=== PATIENT | male | born 1950 | race Caucasian/White ===

== ENCOUNTER → 2018-02-19 10:36 | Outpatient (CLI) | payer MEDICARE, OTHER, SELFPAY ==
--- NOTE | 2018-02-19 | DI.RAD.S_ITS ---
PROCEDURE: XR CHEST 2V INDICATIONS: Acute bronchitis TECHNIQUE: 2 views of the chest were acquired. COMPARISON: None. FINDINGS: Surgical changes and devices: None. Lungs and pleura: No pleural effusions or pneumothorax. Lungs are clear. Mediastinum: Mediastinal contours are normal. Heart size is normal. Bones and chest wall: No suspicious bony abnormalities. Soft tissues appear unremarkable. IMPRESSION: No pneumonia found. Dictated by: Erick Rai M.D. on 02/19/2018 at 11:06 Approved by: Erick Rai M.D. on 02/19/2018 at 11:07
== END ==
PROVIDERS: Family Provider Family Medicine; PCP Family Medicine; Visit Provider Family Medicine
DX: J20.9 Acute bronchitis, unspecified (principal)
CPT/HCPCS: 71046

== ENCOUNTER 2018-06-14 08:43 | Day surgery (SDC) | payer MEDICARE, OTHER, SELFPAY ==
--- NOTE | 2018-06-14 | PATH_ITS ---
[facility] Accession Number: [id number] . 01 Material submitted: . PART A: DUODENUM BIOPSY PART B: ANTRUM BIOPSY PART C: GE JUNCTION BIOPSY PART D: BIOPSY OF FUNDUS . 02 Diagnosis: A. Duodenum, Biopsy: Small bowel mucosa with no diagnostic abnormality. Negative for active inflammation, features of sprue, dysplasia or malignancy. . B. Antrum, Biopsy: Gastric antral mucosa with reactive gastropathy and intestinal metaplasia. Intestinal metaplasia present in 1 of 1 fragments. Negative for Helicobacter organisms by immunohistochemistry. Negative for dysplasia or malignancy. . C. Gastroesophageal Junction, Biopsy: Kassandra esophagitis. Fungal hyphae morphologically consistent with Kassandra species seen on H/E stain. Negative for specialized intestinal metaplasia, dysplasia or malignancy. . D. Fundus, Biopsy: Acute erosive gastritis. Negative for Helicobacter organisms by immunohistochemistry. Negative for intestinal metaplasia, dysplasia or malignancy. BFI06/18/2018 . 02 Electronically signed: . Jack Day MD, PhD, Pathologist NPI- [id number] . 01 Gross description: . Received four formalin-filled containers each labeled with the patient's name. . A. In a container labeled duodenum are two less than 0.1 to 0.1 cm portions of tissue. Entirely submitted in cassette A. B. In a container labeled antrum, the specimen consists of a 0.2 cm portion of tissue. Entirely submitted in cassette B. C. In a container labeled GE junction are four less than 0.1 to 0.1 cm portions of tissue. Entirely submitted in cassette C. D. In a container labeled fundus, the specimen consists of a 0.2 cm portion of tissue. Entirely submitted in cassette D. ([facility]:[id number]) /[facility] . 02 Microscopic: . A. An immunohistochemical stain was performed to evaluate for Helicobacter organisms and is negative. The control stain showed appropriate reactivity. . D. An immunohistochemical stain was performed to evaluate for Helicobacter organisms and is negative. The control stain showed appropriate reactivity. . * This test was developed and its performance characteristics determined by [facility]. It has not been cleared or approved by the U.S. Food and Drug Administration. The FDA has determined that such clearance or approval is not necessary. This test is used for clinical purposes. It should not be regarded as investigational or for research. . 02 Pathologist provided ICD-10: B37.81, K29.70, K31.9 . 02 CPT . 296785, 785499, 235005, 245089, J83182 Performed at: [facility] [address] [id number] MD Joaquín Dominguez MD Phone: [phone] Performed at: 02 [facility] [address] [place], [place] [id number] MD Oneal Rosado MD Phone: [phone]
[2018-06-14 09:15] VITALS: BMI 21.1
[2018-06-14 09:26] VITALS: BP 114/74; PULSE 76; RESP 15; TEMP 36.7; O2SAT 96
[2018-06-14] MEDS: SODIUM CHLORIDE 0.9% 1,000 ML 200 ML IV (09:28)
--- NOTE | 2018-06-14 10:14 | PM.PREOP ---
Pre-operative Note Interval Note Pre-op Check: Yes History & Physical Reviewed by Physician Changes: No
[2018-06-14] MEDS: MIDAZOLAM 5 MG/5 ML VIAL IV (10:31)
[2018-06-14] MEDS: fentaNYL 250 MCG/5 ML INJ IV (10:31)
--- NOTE | 2018-06-14 10:38 | PM.OP.1 ---
Operative Date/Time/Diagnoses Date of procedure: 06/14/18 Time of procedure: 10:38 Pre-op diagnosis: History of esophageal cancer GERD Post-op diagnosis: same Procedure & Clinicians Procedure: Esophagogastroduodenoscopy with biopsies Same procedure as scheduled: Yes Indications: Last endoscopy approximately 2 years ago Surgeon: Yana Canada Click Yes if Unassisted: Yes Anesthesia Type: Sedation (Versed 4 mg; fentanyl 75 mcg) Operative Notes Findings: 1. Normal-appearing duodenum and duodenal mucosa 2. Hemorrhagic gastritis affecting the fundus and the antrum but most severely affecting the fundus. 3. GE junction at 20 cm from the incisors. The appearance is consistent with a Schatzki ring though it is an anastomosis not a true Schatzki ring. Mild distal esophagitis. No hemorrhage here. 4. Normal-appearing posterior oropharynx and vocal cords 5. No evidence of recurrent malignancy Biopsies: All were cold forceps biopsies 1. Duodenum 2. Antrum 3. GE junction 4. Fundus Specimen(s): other (See list above) Estimated Blood Loss (mL): 3 Procedure in detail: After obtaining informed consent, the patient was brought to the GI suite and placed in the left lateral decubitus position on the examination table. After placement of appropriate monitors, the patient was given incremental doses of Versed and Fentanyl until an appropriate level of sedation was achieved. A time out was held per SCOAP protocol. A bite block was gently placed between the patient's teeth. The endoscope was lubricated and then passed into the patient's posterior oropharynx. The esophagus was cannulated under direct vision and the scope was passed to the second portion of the duodenum without difficulty. The scope was then withdrawn with careful examination of all areas of the upper GI tract and mucosa. Findings are noted above. Air was aspirated from the stomach and the endoscope gently removed from the esophagus. The patient was allowed to awaken from sedation without difficulty and taken to the post-anesthesia care unit in good condition. Total sedation time 20 min Complications: none Condition: stable Disposition: PACU Plan for aftercare: 1. Hemorrhagic gastritis 2. No gross evidence of Martin's esophagus affecting the anastomosis at 20 cm 3. Increase omeprazole to 40 mg b.i.d. 4. Plan for repeat EGD in 1 year
[2018-06-14 10:44] VITALS: BP 110/76; PULSE 84; RESP 11; TEMP 37.3; O2SAT 95
[2018-06-14 10:49] VITALS: BP 110/78; PULSE 85; RESP 14; O2SAT 95
[2018-06-14 10:54] VITALS: BP 109/77; PULSE 83; RESP 14; O2SAT 96
[2018-06-14 10:59] VITALS: BP 114/83; PULSE 82; RESP 18; TEMP 36.8; O2SAT 95
[2018-06-14] MEDS: TETRACAINE/BENZOCAINE/BUTAMBEN (CETACAINE) BOTTLE 1 SPRAY TOP (11:06)
[2018-06-14] MEDS: LIDOCAINE 4% SOLN 50 ML 20 ML TOP (11:08)
[2018-06-14 11:10] VITALS: BP 113/75; PULSE 80; RESP 16; O2SAT 97
== END 2018-06-14 11:15 | disposition home or self-care (01) ==
PROVIDERS: PCP Family Medicine; Visit Provider Surgery
PROC: 0DJ08ZZ Inspection of Upper Intestinal Tract, Via Natural or Artificial Opening Endoscopic (ICD-10-PCS; CPT 43235; principal; 2018-06-14 10:45)
DX: B37.81 Candidal esophagitis (principal); K21.0 Gastro-esophageal reflux disease with esophagitis; K29.71 Gastritis, unspecified, with bleeding; K31.9 Disease of stomach and duodenum, unspecified
CPT/HCPCS: 43239; 88305; 88342; 99152; J2250; J3010

== ENCOUNTER → 2019-06-10 13:58 | Outpatient (CLI) | payer MEDICARE, OTHER, SELFPAY ==
--- NOTE | 2019-06-10 | DI.US.S_ITS ---
PROCEDURE: US ABDOMEN LIMITED INDICATIONS: VIRAL PNEOUMONIA TECHNIQUE: Real-time scanning was performed of the abdominal and retroperitoneal organs, with image documentation. COMPARISON: [facility], CT, CHEST/ABD/PELVIS W/CON (PNL), 01/24/2011, 9:19. [facility], CT, CHEST/ABD/PELVIS W/CON (PNL), 03/06/2012, 10:08. FINDINGS: Liver: Liver is normal in size and homogeneous in echotexture. Nonspecific 4 mm cystic lesion noted in the lateral, superior right hepatic lobe. On retrospective review, a likely correlate is identified on comparison CT in both size and location. Its stability over time is compatible with a benign process. Gallbladder: Numerous, mobile gallstones identified in the gallbladder. No gallbladder wall thickening, pericholecystic fluid, or abnormal sonographic Chandler's. Biliary ducts: Intrahepatic bile ducts are non-dilated. Extrahepatic bile duct caliber measures 3 mm. Normal is 6-7 mm or less in diameter, or 10 mm or less post-cholecystectomy. Of note, the distal common bile duct measures at the upper limits of normal at 7 mm in diameter. No evidence for choledocholithiasis. Pancreas: Not well-visualized secondary to bowel gas. Miscellaneous: No free abdominal fluid. IMPRESSION: Cholelithiasis without evidence for acute cholecystitis. Common bile duct measures 3 mm in diameter with borderline prominence of the distal common bile duct measuring up to 7 mm in diameter. No evidence for choledocholithiasis. Dictated by: David Child M.D. on 06/10/2019 at 18:18 Approved by: David Child M.D. on 06/10/2019 at 18:25
--- NOTE | 2019-06-10 | DI.RAD.S_ITS ---
PROCEDURE: XR CHEST 2V INDICATIONS: VIRAL PNEOUMONIA TECHNIQUE: 2 views of the chest were acquired. COMPARISON: [facility], CR, XR CHEST 2V, 02/19/2018, 10:18. FINDINGS: Surgical changes and devices: None. Lungs and pleura: Lungs are clear. No pleural effusions or pneumothorax. Mediastinum: Mediastinal contours are normal. Heart size is normal. Bones and chest wall: No suspicious bony abnormalities. Soft tissues appear unremarkable. IMPRESSION: No acute cardiopulmonary abnormalities. No focal consolidation. Dictated by: David Child M.D. on 06/10/2019 at 14:35 Approved by: David Child M.D. on 06/10/2019 at 14:36
== END ==
PROVIDERS: PCP Family Medicine; Visit Provider Family Medicine
DX: J12.89 Other viral pneumonia (principal); R06.02 Shortness of breath; K80.20 Calculus of gallbladder without cholecystitis without obstruction
CPT/HCPCS: 71046; 76705

== ENCOUNTER → 2019-07-25 12:55 | Outpatient (CLI) | payer MEDICARE, OTHER, SELFPAY ==
--- NOTE | 2019-07-25 | DI.CT.S_ITS ---
PROCEDURE: CT CHEST WO CON INDICATIONS: history of malignant neoplasm of esophagus TECHNIQUE: Noncontrast 5 mm thick sections acquired from the pulmonary apices to the posterior costophrenic angles. 1 mm lung window, 5 mm thick coronal and sagittal and 7 mm axial MIP reformats were then acquired. For radiation dose reduction, the following was used: automated exposure control, adjustment of mA and/or kV according to patient size. COMPARISON: None. FINDINGS: Image quality: Excellent. Lungs and pleura: An ill-defined 5 mm pulmonary nodule is present within the lateral aspect of the right upper lobe (series 3, image 156). A 3 mm diameter pulmonary nodule is present at the anterior right lung base (series 3, image 296). There is mild centrilobular emphysema with an apical predominance. A 4 mm intrafissural nodule is present within the right oblique fissure (series 3, image 213). No acute air space opacities. No pleural effusion or pneumothorax. Mediastinum: Heart size is normal. No pericardial effusion. No mediastinal adenopathy by size criteria. Thoracic aorta and central pulmonary arteries are normal in size. Scattered atheromatous calcifications are present within the aortic arch. Esophagus is normal in caliber. Patient is status post esophageal resection with new esophagus. Bones and chest wall: No suspicious bony lesions. No vertebral body compression fractures. No axillary or supraclavicular adenopathy by size criteria. Thyroid gland is unremarkable. Abdomen: Visualized upper abdominal solid organs and bowel loops appear normal in the absence of contrast. IMPRESSION: 1. 4-5 mm pulmonary nodules as above. Please see followup guidelines below. 2. No acute air space opacities to suggest aspiration or infection. Fleischner Society criteria for SOLID lung nodule followup. Nodule size (mm)Low-risk patientHigh-risk patient?4No follow-up neededFollow-up at 12 mo; if no change, no further follow-up>1-2Vgcyzm-ko CT at 12 mo; if no change, no further follow-up needed.Initial follow-up CT at 6-12 mo, then 18-24 mo if no change. >6-8Initial follow-up CT at 6-12 mo, then 18-24 mo if no change. Initial follow-up CT at 3-6 mo, then 9-12 mo and 24 mo if no change. >8Follow-up CT at 3, 9, 24 mo. Or PET and/or biopsy.Same as for low-risk pts. Fleischner Society criteria for SUB-SOLID lung nodule followup. Solitary pure ground-glass nodules5 mm or lessNo followup needed. >5 mm3 mo follow-up CT to confirm persistence. Then annual CT for 3 years. Part-solid nodules3 mo follow-up CT to confirm persistence. If persistent with solid component <5 mm, annual CT for at least 3 years. If solid component is 5 mm or more, biopsy or surgical resection. Consider PET-CT for lesions > 10 mm. Multiple sub-solid nodulesPure ground glass nodules [address] at 2 and 4 years. Pure ground glass nodules >5 mm without dominant lesion. [address] to confirm persistence, then annual followup CT for at least 3 years. Dominant nodule(s) with part-solid or solid component. [address] to confirm persistence. If persistent, consider biopsy or surgical resection, manfred if lesions have >5 mm solid component. Dictated by: Alison Kimble M.D. on 07/25/2019 at 15:00 Approved by: Alison Kimble M.D. on 07/25/2019 at 15:05
== END ==
PROVIDERS: PCP Family Medicine; Visit Provider Family Medicine
DX: R63.4 Abnormal weight loss (principal); R91.8 Other nonspecific abnormal finding of lung field; Z85.01 Personal history of malignant neoplasm of esophagus
CPT/HCPCS: 71250

== ENCOUNTER → 2019-08-07 13:50 | Outpatient (CLI) | payer SELFPAY ==
--- NOTE | 2019-08-07 | DI.NM.S_ITS ---
PROCEDURE: CO PET CT FUSION LIMITED AREA RADIOPHARMACEUTICAL: 12.8 mCi F-18 fluorodeoxyglucose IV. INDICATIONS: Diagnosing Lung Nodules. History of esophageal cancer. TECHNIQUE: After intravenous administration of F-18 fluoro-deoxyglucose (FDG), noncontrast CT images were obtained for attenuation correction and anatomic localization. A series of overlapping emission PET images was then obtained. The patient's pretest fasting blood glucose level as measured by glucometer was 83 mg/dl. The area imaged spanned from the skull base to the upper thighs. COMPARISON: [facility], , US ABDOMEN LIMITED, 06/10/2019, 14:48. [place], [place], PET/CT NECK TO MID THIGH, 09/18/2007, 15:09. [place], PET/CT NECK TO MID THIGH, 01/10/2008, 8:54. [facility], CT, CHEST/ABD/PELVIS W/CON (PNL), 03/06/2012, 10:08. [facility], CR, XR CHEST 2V, 06/10/2019, 14:03. [facility], CT, CT CHEST WO CON, 07/25/2019, 13:02. FINDINGS: Head and neck: No soft tissue masses in the neck. No enlarged cervical or supraclavicular lymph nodes; no abnormal jacek tracer uptake. Salivary and thyroid glands appear normal. Sinuses and mastoids are clear. Thorax: There are postsurgical changes of esophagectomy and gastric pull through. There is increased uptake in stomach. No enlarged mediastinal, hilar, or axillary lymph nodes. No abnormal jacek tracer uptake. No acute pulmonary opacities. No pleural effusions or pneumothorax. Heart size is normal. No pericardial effusion. Abdomen and pelvis: No enlarged retroperitoneal or mesenteric lymph nodes. No abnormal jacek tracer uptake. There is normal heterogeneous hepatic tracer uptake. Liver is normal in size, without focal masses. The spleen is normal in size. Gallbladder is normal. Pancreas is normal in morphology. No adrenal nodules. Kidneys are normal in size, without hydronephrosis or nephrolithiasis. Small and large intestines are normal in caliber. Aorta and inferior vena cava are normal in size. Severe atherosclerosis. No free fluid or air. No pelvic or inguinal adenopathy. Bladder wall thickness is normal. Bones: No abnormal osseous tracer uptake. No lytic or blastic bony lesions. IMPRESSION: 1. Esophagectomy and gastric pull-through. There is mildly increased activity in stomach, indeterminate in clinical significance. 2. Small lung nodules demonstrate no increased FDG activity. The nodules are, however, to small and could be below the resolution of FDG PET. Recommend CT followup. 3. No scintigraphic findings to suggest jacek or distant metastasis. Dictated by: Justin Wills M.D. on 08/07/2019 at 16:25 Approved by: Justin Wills M.D. on 08/07/2019 at 18:27
== END ==
PROVIDERS: PCP Family Medicine; Visit Provider Family Medicine
DX: R91.8 Other nonspecific abnormal finding of lung field (principal); Z85.01 Personal history of malignant neoplasm of esophagus

== ENCOUNTER 2019-09-02 06:21 | Day surgery (SDC) | payer MEDICARE, OTHER, SELFPAY ==
--- NOTE | 2019-09-02 | PATH_ITS ---
[facility] Accession Number: [id number] . 01 Material submitted: . esophagus, E-G Junction - GE JUNCTION . 02 Diagnosis: Gastroesophageal Junction, Biopsy: Squamocolumnar junctional mucosa with chronic mild active inflammation, consistent with reflux esophagitis. Negative for intestinal metaplasia or fungal organisms on AB/PAS stain. Negative for dysplasia or malignancy. [facility]V 09/04/2019 1232 Local . 02 Electronically signed: . Jack Day MD, PhD, Pathologist NPI- [id number] . 01 Gross description: . GE JUNCTION: Received in formalin are 4 fragment(s) of grayson, soft tissue measuring 0.1 x 0.1 x 0.1 cm to 0.3 x 0.2 x 0.2 cm submitted entirely in 1 cassette(s) /[facility] 09/02/2019 1857 Local . 02 Microscopic: . An AB/PAS stain is negative for goblet cells and fungal organisms. A control stain shows appropriate reactivity. . 02 Pathologist provided ICD-10: K21.0 . 02 CPT . 782898, [id number] Performed at: 01 [facility] [address] [facility], [place], [place] [id number] MD Joaquín Dominguez MD Phone: [phone] Performed at: 02 [facility] [address] [place], [place] [id number] MD Libra Burgess MD Phone: [phone]
[2019-09-02 07:19] VITALS: BP 123/76; PULSE 73; RESP 15; TEMP 36.8; O2SAT 95
[2019-09-02] MEDS: SODIUM CHLORIDE 0.9% 1,000 ML 200 ML IV (07:41)
--- NOTE | 2019-09-02 07:48 | PM.HP.1 ---
History of Present Illness History of Present Illness Date Patient Seen: 09/02/19 Time Patient Seen: 07:48 Chief complaint: [id number] Narrative: This is a 69-year-old male history of a transhiatal esophagectomy 12 years ago for esophageal cancer with gastric pull up presents for diagnostic EGD. He has some mild dysphagia with solid food getting stuck the upper aspect of his conduit for the past couple of months. His last EGD was 2 years ago and was negative for malignancy. No unintentional weight loss no new pain nausea hematemesis. Patient History Medical History Esophageal cancer (Acute) Surgical History H/O esophagectomy (Acute) Family & Social History Family History Mother Liver cancer Cancer Social History: household members spouse Tobacco & Substance use: Smoking Status Never smoker alcohol intake current Meds Home Medications and Allergies Home Medications Medication Instructions Recorded Confirmed Type finasteride 5 mg tablet 5 mg PO DAILY 06/04/18 09/02/19 History rosuvastatin 5 mg tablet 5 mg PO DAILY 06/04/18 09/02/19 History tamsulosin 0.4 mg capsule 0.8 mg PO DAILY cap 06/04/18 09/02/19 History omeprazole 40 mg PO DAILY 06/14/18 09/02/19 History oxybutynin chloride 5 mg PO DAILY 06/14/18 09/02/19 History sucralfate 1 gram PO QACHS PRN 09/02/19 09/02/19 History Allergies Allergy/AdvReac Type Severity Reaction Status Date / Time No Known Drug Allergies Allergy Verified 09/02/19 07:04 Review of Systems Review of Systems Narrative: A 10 point review of systems is negative except as noted in the HPI Exam Vital Signs (past 8 hours): - 09/02/19 07:19 Temperature 98.2 F Pulse Rate 73 Respiratory Rate 15 Blood Pressure 123/76 Pulse Oximetry 95 Oxygen Delivery Method Room Air Narrative Exam Narrative: General-no acute distress, thin male HEENT-moist mucous membranes, no scleral icterus Neck-supple, no lymphadenopathy Chest- non labored respirations, clear to auscultation bilaterally Cardiac-regular rate no peripheral edema Abdomen-soft, nontender, non distended Extremities-warm, well perfused Neurological-alert and oriented, no focal deficits Assessment & Plan Assessment and plan (1) Dysphagia: Current visit: Yes Status: Acute Assessment & Plan narrative: 69-year-old male history of transhiatal esophagectomy with gastric pull up 12 years ago for esophageal cancer presents with new dysphagia. Esophagoduodenoscopy is indicated. Possible biopsy, possible dilation. We discussed the risks of procedure including bleeding perforation missed diagnosis need for further procedures. His questions have been answered and he is in agreement with this plan.
[2019-09-02] MEDS: LIDOCAINE 4% SOLN 50 ML 20 ML TOP (07:54)
--- NOTE | 2019-09-02 08:10 | PM.OP.ENDO ---
Operative Date/Time/Diagnoses Date of procedure: 09/02/19 Time of procedure: 08:10 Pre-op diagnosis: History of esophageal cancer, dysphagia Post-op diagnosis: same Procedure & Clinicians Study performed: Esophagoduodenoscopy Same procedure as scheduled: Yes Indications: 69-year-old male esophagectomy 12 years ago with mild dysphagia now Surgeon: Gabino Solano Procedure Notes SCOAP/Timeout: Performed Procedure in detail: Patient placed in left lateral decubitus position. Time out was performed. Procedural sedation was administered with Versed and Fentanyl. A bite block was placed. the scope was inserted into the mouth and advanced through the esophagus and into the stomach. The pylorus was intubated and the duodenum was normal. The scope was then withdrawn into the gastric conduit and the conduit was normal in its appearance. The gastro cervical anastomosis was observed and was without ulcerations. For biopsies of the GE junction the attic gastric conduit we were taken with forceps at 15 cm from the incisors. There was a mild stricture of the gastro cervical anastomosis the scope passed easily but there was a slight narrowing here. This was dilated using the 20 mm balloon dilator. The balloon was placed across the stricture and then was carefully insufflated under direct visualization until 20 mm were reached. This was held at the stricture and then the pressure released. Stricture was observed for hemostasis. Then the gastric conduit was desufflated and the scope was withdrawn. Patient tolerated procedure well. Findings: other findings (Gastric stricture) Specimen(s): other (GE junction) Complications: none Impression: Anastomotic stricture Post-procedure Recommendations: EGD in 3 years Disposition: same day surgery
[2019-09-02] MEDS: fentaNYL 250 MCG/5 ML INJ IV (08:13)
[2019-09-02] MEDS: MIDAZOLAM 5 MG/5 ML VIAL IV (08:13)
[2019-09-02 08:15] VITALS: BP 124/78; PULSE 69; RESP 12; TEMP 36.5; O2SAT 94
[2019-09-02 08:20] VITALS: BP 107/70; PULSE 69; RESP 12; O2SAT 97
[2019-09-02 08:25] VITALS: BP 103/70; PULSE 68; RESP 12; O2SAT 96
[2019-09-02 08:34] VITALS: BP 115/81; PULSE 73; RESP 20; O2SAT 94
--- NOTE | 2019-09-02 08:52 | SUR.PHASEII ---
Patient discharged in stable condition with in no distress. All belongings returned to patient. Home via wheelchair and private vehicle.
== END 2019-09-02 08:53 | disposition home or self-care (01) ==
PROVIDERS: PCP Family Medicine; Visit Provider Surgery
PROC: 0DJ08ZZ Inspection of Upper Intestinal Tract, Via Natural or Artificial Opening Endoscopic (ICD-10-PCS; CPT 43235; principal; 2019-09-02 07:45)
DX: K22.2 Esophageal obstruction (principal); Z85.01 Personal history of malignant neoplasm of esophagus
CPT/HCPCS: 43249; J2250; J3010

== ENCOUNTER → 2020-08-10 09:43 | Outpatient (CLI) | payer MEDICARE, OTHER, SELFPAY ==
[2020-08-10 10:36] LABS: COVID19 -Nasal RAPID Negative (Negative)
== END ==
PROVIDERS: PCP Family Medicine; Visit Provider Specialist
DX: Z01.812 Encounter for preprocedural laboratory examination (principal); Z20.828 Contact with and (suspected) exposure to other viral communicable diseases
CPT/HCPCS: 87635; C9803

== ENCOUNTER 2020-08-11 06:37 | Day surgery (SDC) | payer MEDICARE, OTHER, SELFPAY ==
[2020-08-11] VITALS (8 sets, daily range): BP systolic 103–120; BP diastolic 67–73; PULSE 70–79; RESP 11–24; TEMP 36–37.1; O2SAT 94–99; BMI 20.7
[2020-08-11] MEDS: LACTATED RINGERS 1,000 ML 200 ML IV (07:29)
[2020-08-11] MEDS: LIDOCAINE 4% SOLN 50 ML 20 ML TOP (08:03)
--- NOTE | 2020-08-11 08:03 | PM.PREOP ---
Pre-operative Note COVID-19 COVID-19 status: Negative Result date/Date tested (Pos, Neg/Pending): 08/10/20 Interval Note History & Physical reviewed/Exam performed by Physician: Yes Changes to H&P: No ASA Class (for procedural sedation): II
[2020-08-11] MEDS: MIDAZOLAM 5 MG/5 ML VIAL IV (08:06)
[2020-08-11] MEDS: fentaNYL 250 MCG/5 ML INJ IV (08:06)
--- NOTE | 2020-08-11 08:17 | PM.OP.ENDO ---
Operative Date/Time/Diagnoses Date of procedure: 08/11/20 Time of procedure: 08:18 Pre-op diagnosis: Dysphagia. History of esophageal resection for cancer. Post-op diagnosis: same Procedure & Clinicians Study performed: EGD with attempted dilatation. Same procedure as scheduled: Yes Indications: Patient with sensation of sticking in his throat. Brought in for an EGD. He has had weight loss. Surgeon: Musa Vann Procedure Notes SCOAP/Timeout: Perform Procedure in detail: The patient had topical anesthetic applied to oropharynx. She was placed in left lateral decubitus position and underwent IV sedation directed by the surgeon consisting of fentanyl and Versed. A bite block was inserted and the scope was advanced through it into the esophagus. The esophagus was short. GE anastomosis was noted. It was patent. The stomach was visualized though it could not be distended with air well.. There were no lesions seen in the stomach. The pyloric channel was patent though slightly narrowed.. The duodenum was unremarkable to the 4th part. The scope was brought back into the stomach The scope was straightened and brought out through the esophagus again. No lesions were seen. I inserted the largest dilating balloon through the scope and inflated it to 20 mm diameter. It just touched the anderson of the anastomosis. The scope was removed and the patient tolerated the procedure well. Scope withdrawal time: Not applicable Sedation minutes: 12 Findings: other findings (Post esophageal resection with gastric pull-up.) Specimen(s): none sent Complications: none Post-procedure Recommendations: Other recommendation (Chew food well.) Follow up: as needed Disposition: PACU
--- NOTE | 2020-08-11 10:50 | SUR.PHASEII ---
Late entry: called, pt ready to go, no chest pain or sob, pt left when ready and left in stable condition.
== END 2020-08-11 09:20 | disposition home or self-care (01) ==
PROVIDERS: PCP Family Medicine; Referring Provider Family Medicine; Visit Provider Specialist
PROC: 0DJ08ZZ Inspection of Upper Intestinal Tract, Via Natural or Artificial Opening Endoscopic (ICD-10-PCS; CPT 43235; principal; 2020-08-11 07:45)
DX: R13.10 Dysphagia, unspecified (principal); K21.9 Gastro-esophageal reflux disease without esophagitis; Z85.01 Personal history of malignant neoplasm of esophagus
CPT/HCPCS: 43249; 99152; J2250; J3010

== ENCOUNTER → 2021-11-01 09:44 | Outpatient (CLI) | payer MEDICARE, OTHER, SELFPAY ==
[2021-11-01 14:08] LABS: COVID19 -Nasal RAPID Negative (Negative)
== END ==
PROVIDERS: PCP Family Medicine; Visit Provider Family Medicine Sleep Medicine
DX: Z20.822 Contact with and (suspected) exposure to COVID-19 (principal)
CPT/HCPCS: 87635; C9803

== ENCOUNTER 2021-11-02 09:20 | Day surgery (SDC) | payer MEDICARE, OTHER, SELFPAY ==
[2021-11-02] MEDS: CATARACT EYE COMPOUND (10 DROPS/SYRINGE) 3 DROPS EYE-OP (10:35)
[2021-11-02] MEDS: PROPARACAINE 0.5% OPHTH SOL 2 DROPS EYE-OP (10:35)
[2021-11-02 10:46] VITALS: BP 124/72; PULSE 75; RESP 16; TEMP 36.9; O2SAT 96
--- NOTE | 2021-11-02 11:35 | P.OP_ITS ---
Operative Date/Time/Diagnoses Pre-op diagnosis: Nuclear Cataract Left eye Post-op diagnosis: same Procedure & Clinicians Same procedure as scheduled: Yes Surgeon: Dieudonne Tucker Anesthesia Type: MAC +/- and Sedation Operative Notes Procedure in detail: Patient brought to the operating suite. Tetracaine drops placed in the left eye. Marking instrument was used to eladio the vertical and horizontal meridians. Patient was prepped and draped in sterile manner. Wire lid speculum was placed in the eye. Marking instrument was used to eladio the 170 degree meridian. Betad ine drops were placed on the eye. This was irrigated. Lidocaine jelly was placed on the eye. A paracentesis port was created with a side-port blade. 0.1 mL 1% preservative free lidocaine was injected into the anterior chamber. The anterior chamber was deepened with viscoelastic. 2.6 mm keratome was used to create a temporal clear corneal incision. Cystotome and Utrata forceps were used to create continuous tear capsulorrhexis. Balanced salt solution was used to hydro dissect the nucleus. The phacoemulsification handpiece was inserted and the nucleus was removed using the stop and chop technique. The irrigation aspiration handpiece was inserted and the remaining cortex was removed. Anterior chamber was deepened with viscoelastic. An Sanders [id number] intraocular lens with a power of 20.0 was injected into the capsular bag. Irrigation aspiration handpiece was inserted and the remaining viscoelastic was removed. The lens was rotated to the 170 degree meridian. Incision was hydrated with balanced salt solution and found to be leak free with pressure with Weck-Ana sponges. 0.1 mL Vigamox injected anterior chamber. 0.3 mL Kenalog 10 mg was injected subconjunctivally. Lid speculum was removed. The patient left the operating room in excellent condition. Complications: none Post-operative Condition: stable Disposition: same day surgery
--- NOTE | 2021-11-02 11:35 | PM.PREOP ---
Pre-operative Note Interval Note History & Physical reviewed/Exam performed by Physician: Yes Changes to H&P: No
--- NOTE | 2021-11-02 12:18 | SUR.OPER ---
Supine on eye stretcher, head on extension cradle secured with tape. Arms tucked at sides with blanket. Pillow under knees.
[2021-11-02] MEDS: PHENYLEPHRINE/LIDOCAINE VIAL (OR) 0.2 ML EYE-OP (12:22)
[2021-11-02] MEDS: HYALURONATE SODIUM 30 MG-10 MG/ML SYRINGES 1 BOX INTRAOCULA (12:22)
[2021-11-02] MEDS: MOXIFLOXACIN INJ 4 MG/0.8 ML VIAL 0.5 MG EYE-OP (12:22)
[2021-11-02] MEDS: LIDOCAINE 2% (GLYDO) 6 ML GEL TOP (12:23)
[2021-11-02] MEDS: TETRACAINE 0.5% OPHTH DROPS 4 ML 2 DROPS EYE-OP (12:23)
[2021-11-02] MEDS: TRIAMCINOLONE 50 MG/5 ML VIAL INJ (12:23)
[2021-11-02] MEDS: BALANCED SALT IRRIG SOLN NO.2 500 ML, EPINEPHrine 1 MG IRR (12:23)
[2021-11-02 12:38] VITALS: BP 108/68; PULSE 72; RESP 12; TEMP 36.4; O2SAT 98
== END 2021-11-02 12:53 | disposition home or self-care (01) ==
PROVIDERS: PCP Internal Medicine; Referring Provider Ophthalmology; Visit Provider Ophthalmology
PROC: (CPT 66984; principal; 2021-11-02 11:15)
DX: H25.12 Age-related nuclear cataract, left eye (principal)
CPT/HCPCS: 66984; J0171; J2250; J3301; V2787

== ENCOUNTER → 2021-11-15 10:57 | Outpatient (CLI) | payer MEDICARE, OTHER, SELFPAY ==
[2021-11-15 13:32] LABS: COVID19 -Nasal RAPID Negative (Negative)
== END ==
PROVIDERS: PCP Internal Medicine; Visit Provider Family Medicine Sleep Medicine
DX: Z20.822 Contact with and (suspected) exposure to COVID-19 (principal)
CPT/HCPCS: 87635; C9803

== ENCOUNTER 2021-11-16 08:40 | Day surgery (SDC) | payer MEDICARE, OTHER, SELFPAY ==
[2021-11-16] MEDS: CATARACT EYE COMPOUND (10 DROPS/SYRINGE) 3 DROPS EYE-OP (09:53)
[2021-11-16] MEDS: PROPARACAINE 0.5% OPHTH SOL 2 DROPS EYE-OP (09:53)
[2021-11-16 09:57] VITALS: BP 107/65; PULSE 70; RESP 18; TEMP 36; O2SAT 96
--- NOTE | 2021-11-16 10:45 | SUR.OPER ---
Supine on eye stretcher, head on extension cradle secured with tape. Arms tucked at sides with blanket. Pillow under knees.
--- NOTE | 2021-11-16 10:55 | PM.PREOP ---
Pre-operative Note Interval Note History & Physical reviewed/Exam performed by Physician: Yes Changes to H&P: No
--- NOTE | 2021-11-16 10:55 | PM.OP.1 ---
Operative Date/Time/Diagnoses Pre-op diagnosis: Nuclear cataract right eye Procedure & Clinicians Procedure: Cataract Surgery Same procedure as scheduled: Yes Surgeon: Dieudonne Tucker Anesthesia Type: MAC +/- and Sedation Operative Notes Procedure in detail: Patient brought to the operating suite. Tetracaine drops placed in the right eye. Marking instrument was used to eladio the 30 degree meridian. Patient was prepped and draped in sterile manner. Wire lid speculum was placed in the eye. Marking instrument was used to eladio the 30 degree meridian. Betadine drops were placed on the eye. This was irrigated. Lidocaine jelly was placed on the eye. A paracentesis port was created with a side-port blade. 0.1 mL 1% preservative free lidocaine was injected into the anterior chamber. The anterior chamber was deepened with viscoelastic. 2.6 mm keratome was used to create a temporal clear corneal incision. Cystotome and Utrata forceps were used to create continuous tear capsulorrhexis. Balanced salt solution was used to hydro dissect the nucleus. The phacoemulsification handpiece was inserted and the nucleus was removed using the stop and chop technique. The irrigation aspiration handpiece was inserted and the remaining cortex was removed. Anterior chamber was deepened with viscoelastic. An Sanders [id number] intraocular lens with a power of 20.5 was injected into the capsular bag. Irrigation aspiration handpiece was inserted and the remaining viscoelastic was removed. The lens was rotated to the 30 degree meridian. Incision was hydrated with balanced salt solution and found to be leak free with pressure with Weck-Ana sponges. 0.1 mL Vigamox injected anterior chamber. 0.3 mL Kenalog 10 mg was injected subconjunctivally. Lid speculum was removed. The patient left the operating room in excellent condition. Complications: none Post-operative Condition: stable Disposition: same day surgery
[2021-11-16] MEDS: HYALURONATE SODIUM 30 MG-10 MG/ML SYRINGES 1 BOX INTRAOCULA (11:14)
[2021-11-16] MEDS: MOXIFLOXACIN INJ 4 MG/0.8 ML VIAL 0.5 MG EYE-OP (11:15)
[2021-11-16] MEDS: PHENYLEPHRINE/LIDOCAINE VIAL (OR) 0.2 ML EYE-OP (11:15)
[2021-11-16] MEDS: TRIAMCINOLONE 50 MG/5 ML VIAL INJ (11:15)
[2021-11-16] MEDS: TETRACAINE 0.5% OPHTH DROPS 4 ML 2 DROPS EYE-OP (11:16)
[2021-11-16] MEDS: BALANCED SALT IRRIG SOLN NO.2 500 ML, EPINEPHrine 1 MG IRR (11:16)
[2021-11-16] MEDS: LIDOCAINE 2% (GLYDO) 6 ML GEL TOP (11:16)
[2021-11-16 11:32] VITALS: BP 97/61; PULSE 73; RESP 16; TEMP 36.2; O2SAT 96
== END 2021-11-16 11:52 | disposition home or self-care (01) ==
PROVIDERS: PCP Internal Medicine; Referring Provider Ophthalmology; Visit Provider Ophthalmology
PROC: (CPT 66984; principal; 2021-11-16 10:45)
DX: H25.11 Age-related nuclear cataract, right eye (principal)
CPT/HCPCS: 66984; J0171; J2250; J3010; J3301; V2787